=== PATIENT | female | born 1960 | race Caucasian/White ===

== ENCOUNTER → 2017-08-14 | Outpatient (CLI) | payer OTHER ==
[2014-08-25 14:40] VITALS: BP 107/59
[~2017-08-14] MED LIST: CALC500T54 PO; CIPR500T94 PO; ESTR1TAB25 PO; FLUT16SP2 NS; RANI150C PO; TRAM50TA PO; VENL75TA PO
--- NOTE | 2017-08-14 12:52 | RAD ---
Clinical indications: Right lower quadrant abdominal pain for 5 years. History of hysterectomy and cholecystectomy.. Technique: A preliminary KUB was performed. The patient drank two 8 ounce glasses of thin liquid barium containing 1 ounce of Gastrografin and a small bowel series was performed. When the contrast reached the colon, fluoroscopic evaluation of the small bowel was performed including compressive fluoroscopic spot views of the terminal ileum. Total fluoroscopic time: 0.5 minutes. Total fluoroscopic spot views: 8. Findings: No obstructive bowel pattern is seen on the preliminary film.. Contrast reaches the colon by 100 minutes. Peristalsis of the small bowel loops is observed during fluoroscopy. No mucosal fold thickening or distortion or displacement or dilatation of small bowel loops is seen.The terminal ileum is distensible and appears normal radiographically and is not focally tender during compression.. Impression: Unremarkable small bowel series.
== END | disposition home or self-care (01) ==
LOC: RAD 09:56
PROVIDERS: ATTEND Internal Medicine Gastroenterology
DX: R10.31 Right lower quadrant pain (principal); Z90.49 Acquired absence of other specified parts of digestive tract; Z90.710 Acquired absence of both cervix and uterus
CPT/HCPCS: 74250

== ENCOUNTER → 2017-09-14 | Outpatient (CLI) | payer OTHER ==
[2014-08-25 14:40] VITALS: BP 107/59
--- NOTE | 2017-09-14 09:51 | RAD ---
EXAM: Nuclear gastric emptying scan. HISTORY: Nausea/vomiting. Abdominal pain. COMPARISON: None. TECHNIQUE: Serial static images were obtained over the stomach following oral administration of 2.1 mCi of 99m-Tc sulfur colloid in an egg based meal. FINDINGS: The stomach appears normal in contour. There is clearance of activity into the small bowel. Gastric emptying half-time is 73.5 minutes (normal <90 minutes). Refer to the worksheets for more detail. IMPRESSION: 1. Normal gastric emptying halftime.
== END | disposition home or self-care (01) ==
LOC: NM 07:47
PROVIDERS: ATTEND Internal Medicine Gastroenterology
DX: R14.0 Abdominal distension (gaseous) (principal); R11.2 Nausea with vomiting, unspecified; R63.4 Abnormal weight loss; Z90.49 Acquired absence of other specified parts of digestive tract
CPT/HCPCS: 78264; A9541

== ENCOUNTER → 2017-09-22 | Outpatient (CLI) | payer OTHER ==
[2014-08-25 14:40] VITALS: BP 107/59
[~2017-09-22] MED LIST changes: +IOHEXOL 300 MG/ML 75 ML VIAL. IV ONE
--- NOTE | 2017-09-22 11:48 | RAD ---
CT angiogram of the abdomen with contrast Indication: Chronic right lower abdominal/upper pelvic pain. Complete hysterectomy. Abdominal adhesions. Status post cholecystectomy and exploratory laparotomy. CT angiograph of the abdomen with 75 mL of Omnipaque 300 with multiplanar MIP reformats. Comparison: None Findings: Heart is normal in size. No pericardial or pleural effusion. Subsegmental atelectasis or scarring in the lingula. The liver is normal in morphology without focal hepatic lesion. Spleen is not enlarged. Status post cholecystectomy. Pancreas is within normal limits. No adrenal nodularity. No enhancing renal lesions seen on the arterial phase. No retroperitoneal or pelvic adenopathy. Enhancing left upper quadrant round nodule likely accessory spleen. No bowel obstruction. No aortic aneurysm or dissection. No atherosclerotic disease of the aorta. The celiac axis, common hepatic artery, left gastric artery, SMA, ALLNE, renal arteries, bilateral common iliac arteries, bilateral proximal external/internal iliac arteries are patent without evidence of stenosis, aneurysm or significant atherosclerotic disease. small omental fat-containing umbilical hernia. No suspicious bony lesion. Likely Injection granulomas in the bilateral gluteal soft tissues. Impression: No evidence of atherosclerotic disease of the abdominal aorta or its branches. PQRS Compliance Statement: One or more of the following individualized dose reduction techniques were utilized for this examination: 1. Automated exposure control 2. Adjustment of the mA and/or kV according to patient size 3. Use of iterative reconstruction technique
== END | disposition home or self-care (01) ==
LOC: CT 09:35
PROVIDERS: ATTEND Internal Medicine Gastroenterology
DX: R12 Heartburn (principal); R10.9 Unspecified abdominal pain; R11.2 Nausea with vomiting, unspecified; Z90.49 Acquired absence of other specified parts of digestive tract
CPT/HCPCS: 74175; Q9967

== ENCOUNTER 2019-11-20 09:44 | Emergency (ER) | payer OTHER ==
[~2019-11-20] VITALS: Ht 162.6 cm; Wt 80.9 kg
[2019-11-20 09:44] VITALS: BP 157/91
[~2019-11-20 09:44] MED LIST changes: -IOHEXOL 300 MG/ML 75 ML VIAL. IV ONE
[2019-11-20] MEDS ORDERED: ACETAMINOPHEN 500 MG TABLET PO ONE (10:15)
[2019-11-20] MEDS ORDERED: HYDROcodone/APAP 5/325MG 1 TAB TABLET PO ONE (10:15)
--- NOTE | 2019-11-20 10:18 | PHYS DOC ---
Past History Past Medical History: DVT, Hypertension, IBS, Pneumonia Past Surgical History: Cholecystectomy, Hysterectomy Alcohol Use: Occasionally Drug Use: None Adult General Chief Complaint Chief Complaint: COUGH HPI HPI Patient is a 59-year-old female who presents with cough, sore throat, nasal congestion and body aches and mild headache. Symptom onset was 3 days ago. No shortness of breath, wheezing, vomiting, neck pain, rash. No history of asthma or COPD or chronic respiratory disease. No medications or therapy sticking prior to ED arrival. Remote history of PE. Patient not currently on anticoagulation therapy.[] Review of Systems Review of Systems Review symptoms as per history of present illness. All other review symptoms are negative. All other systems were reviewed and found to be within normal limits, except as documented in this note. Current Medications Current Medications Current Medications Medications (Trade) Dose Ordered Sig/Cherie Start Time Stop Time Status Last Admin Dose Admin Acetaminophen (Tylenol) 1,000 mg 1X ONCE 11/20/19 10:15 11/20/19 10:16 Acetaminophen/ Hydrocodone Bitart (Lortab 5/325) 1 tab 1X ONCE 11/20/19 10:15 11/20/19 10:12 DC Allergies Allergies Allergies Coded Allergies Type Severity Reaction Last Updated Verified Penicillins Allergy Intermediate Rash 04/07/14 Yes lisinopril Allergy Intermediate 08/24/14 Yes morphine Allergy Intermediate 08/24/14 Yes ibuprofen Adverse Reaction Intermediate STOMACH UPSET 08/25/14 Yes Physical Exam Physical Exam Constitutional: Well developed, well nourished, no acute distress, non-toxic appearance. [] HENT: Normocephalic, atraumatic, bilateral external ears normal, oropharynx moist, no oral exudates, nose, congestion, clear rhinorrhea. [] Eyes: PERRLA, EOMI, conjunctiva normal, no discharge. [] Neck: Normal range of motion, no tenderness, supple, no stridor. [] Cardiovascular:Heart rate regular rhythm, no murmur [] Lungs & Thorax: Bilateral breath sounds clear to auscultation [] Abdomen: Bowel sounds normal, soft, no tenderness. [] Skin: Warm, dry, no erythema, no rash. [] Back: No tenderness.s. [] Extremities: No tenderness, no edema. [] Neurologic: Alert and oriented X 3, normal motor function, normal sensory function, no focal deficits noted. [] Psychologic: Affect normal, judgement normal, mood normal. [] Current Patient Data Vital Signs Vital Signs Date Time Temp Pulse Resp B/P (MAP) Pulse Ox O2 Delivery O2 Flow Rate FiO2 11/20/19 09:44 99.0 104 22 157/91 (113) 95 Room Air EKG EKG [] Radiology/Procedures Radiology/Procedures [] Course & Med Decision Making Course & Med Decision Making Pertinent Labs and Imaging studies reviewed. (See chart for details) [Influenza-like illness without respiratory compromise. Will treat supportively with close PCP follow-up. Return precautions reviewed.] Dragon Disclaimer Dragon Disclaimer This electronic medical record was generated, in whole or in part, using a voice recognition dictation system. Departure Departure: Impression: Primary Impression: Influenza Disposition: HOME, SELF-CARE Condition: STABLE Referrals: MARK PAREKH DO (PCP) Scripts Guaifenesin/Codeine Phosphate (Codeine-Guaifen 10-100 mg/5 ml) 120 Ml Liquid 5 ML PO PRN Q6HRS PRN for cough and congestion MDD 20 Milliliter(s) for 6 Days, #120 ML 0 Refills Prov: CHIQUIS FRANCO DO 11/20/19 CHIQUIS FRANCO DO Nov 20, 2019 10:18
[2019-11-20 10:33] LABS: INFLUENZA A PATIENT NEGATIVE (NEGATIVE); INFLUENZA B PATIENT NEGATIVE (NEGATIVE)
[2019-11-20] MEDS ORDERED: GUAI120L35 PO (10:34)
== END 2019-11-20 10:44 | disposition home or self-care (01) ==
LOC: ER 09:44
DX: J11.1 Influenza due to unidentified influenza virus with other respiratory manifestations (principal); R05 Cough; R51 Headache; R09.81 Nasal congestion; Z86.718 Personal history of other venous thrombosis and embolism; I10 Essential (primary) hypertension; K58.9 Irritable bowel syndrome, unspecified; Z90.49 Acquired absence of other specified parts of digestive tract; Z90.710 Acquired absence of both cervix and uterus; Z88.0 Allergy status to penicillin; Z88.6 Allergy status to analgesic agent; Z88.8 Allergy status to other drugs, medicaments and biological substances
CPT/HCPCS: 87070; 87804; 87880; 99284

== ENCOUNTER → 2021-02-14 | Outpatient (CLI) | payer OTHER ==
[~2021-02-14] MED LIST changes: +GUAI120L35 PO
--- NOTE | 2021-02-14 15:06 | RAD ---
EXAM: Renal sonogram. HISTORY: Renal insufficiency. Right flank pain. TECHNIQUE: Sonographic imaging the kidneys and bladder was performed. COMPARISON: None. FINDINGS: The kidneys are normal in size. There is mild right hydronephrosis or an extrarenal pelvis. There is a 7 mm simple appearing right renal cyst. The prevoid bladder volume is 227 cc. The uretera l jets are both seen. The inferior vena cava is patent. The aorta is normal in caliber. IMPRESSION: 1. Mild right hydronephrosis or right extrarenal pelvis. The right ureteral jet is seen. 2. Tiny simple appearing renal cysts. Follow-up is not routinely performed for simple cysts. Electronically signed by: Alisha Carr MD (02/14/2021 3:04 PM) [id number]
== END ==
LOC: US 14:29
PROVIDERS: ATTEND Internal Medicine Nephrology
DX: N18.2 Chronic kidney disease, stage 2 (mild) (principal)
CPT/HCPCS: 76770